=== PATIENT | male | born 1965 | race Caucasian/White ===

== ENCOUNTER 2021-12-13 13:12 | Emergency (ER) | payer OTHER ==
[~2021-12-13] VITALS: Ht 177.8 cm; Wt 74.8 kg
[2021-12-13 13:25] VITALS: BP_SYST 125
--- NOTE | 2021-12-13 13:26 | NUR ---
Patient BIBA for c/o dizziness and feeling lightheaded. Patient reports hx of orthostatic hypotension, Afib, and DM II. Patient A/Ox4, VSS, resp even and unlabored. Ambulates with walker. NAD noted at this time. Will continue to monitor.
--- NOTE | 2021-12-13 13:28 | NUR ---
Patient to ER bed 4 to gown for evaluation. Side rails up. Report given to MANDI LORENZO.
--- NOTE | 2021-12-13 13:52 | NUR ---
SHOBHA RAINEY at bedside.
[2021-12-13] MEDS ORDERED: NACL 0.9% 1,000 ML IV ONE (14:00)
--- NOTE | 2021-12-13 14:07 | NUR ---
covid swab done and sent to lab
--- NOTE | 2021-12-13 14:21 | NUR ---
Radiology at bedside.
[2021-12-13] MEDS ORDERED: ACET-73 PO (14:24)
[2021-12-13] MEDS ORDERED: ESCI10TA PO (14:35)
[2021-12-13] MEDS ORDERED: APIX5TAB PO (14:35)
[2021-12-13] MEDS ORDERED: LIP40 PO (14:35)
[2021-12-13 15:41] LABS: BASOPHILS # (AUTO) 0.1 K/uL (0.0-0.2); BASOPHILS % (AUTO) 0.7 % (0.0-2.0); EOSINOPHILS # (AUTO) 0.3 K/uL (0.0-0.4); EOSINOPHILS % (AUTO) 3.2 % (0.0-4.0); HEMATOCRIT 43.2 % (36-54); HEMOGLOBIN 14.6 g/dL (14.0-18.0); LYMPHOCYTES # (AUTO) 2.5 K/uL (1.0-5.5); LYMPHOCYTES % (AUTO) 24.6 % (20.5-51.5); MEAN CORPUSCULAR HEMOGLOBIN 30 pg (27-31); MEAN CORPUSCULAR HGB CONC 34 % (32-36); MEAN CORPUSCULAR VOLUME 87 fL (79.0-98.0); MONOCYTES # (AUTO) 0.9 K/uL (0.0-1.0); MONOCYTES % (AUTO) 8.8 % (1.7-9.3); NEUTROPHILS # (AUTO) 6.5 K/uL (1.8-7.7); NEUTROPHILS % (AUTO) 62.7 % (40.0-70.0); PLATELET COUNT (AUTO) 329 K/uL (130-430); RED BLOOD CELL COUNT(AUTO) 4.95 MIL/uL (4.2-6.2); RED CELL DISTRIBUTION WIDTH 14.1 % (9.0-15.0); WHITE BLOOD COUNT (AUTO) 10.3 K/uL (4.8-10.8)
[2021-12-13 15:50] LABS: CALCIUM 10.1 mg/dL (8.4-11.0); CREATININE 1.82 mg/dL (0.55-1.30); POTASSIUM 4.8 mmol/L (3.5-5.1)
[2021-12-13 16:42] LABS: ALBUMIN 4.4 g/dL (3.4-4.8); TOTAL BILIRUBIN 0.5 mg/dL (0.0-1.0)
[2021-12-13] MEDS ORDERED: GABA800T PO (17:04)
[2021-12-13] MEDS ORDERED: DILT120C89 PO (17:04)
--- NOTE | 2021-12-13 17:15 | NUR ---
Patient given written and verbal discharge instructions and verbalizes understanding. ER MD discussed with patient the results and treatment provided. Patient in stable condition. ID arm band removed. IV catheter removed intact and dressing applied, no active bleeding. Rx of Diltiazem HCL and Gabapentin given. Patient educated on pain management and to follow up with PMD. Pain Scale 0/10. Opportunity for questions provided and answered. Medication side effect fact sheet provided. Patient A/Ox4, VSS, resp even and unlabored. Nad noted at this time.
[2021-12-13 17:22] VITALS: BP_SYST 125
== END 2021-12-13 17:15 | disposition home or self-care (01) ==
LOC: SED 13:12
DX: E86.0 Dehydration (principal); E11.65 Type 2 diabetes mellitus with hyperglycemia; R53.1 Weakness; Z79.899 Other long term (current) drug therapy
CPT/HCPCS: 99285; 96360; 71045; 80053; 85025; 87040; 36415; 93005; 83605; J7030